=== PATIENT | female | born 1970 | race Hispanic/Latino ===

== ENCOUNTER 2018-11-23 21:40 | Emergency (ER) | payer OTHER, SELFPAY ==
[2018-11-23 23:04] LABS: #Basophils 0.1 thou/uL (0.0-0.2); #Eosinphils 0.1 thou/uL (0.0-0.7); #Lymphocytes 3.7 thou/uL (1.20-3.40); #Monocytes 0.5 thou/uL (0.11-0.59); #Neutrophils 5.7 thou/uL (1.40-6.50); %Eosinophils 1.1 % (0.0-10.0); %Lymphocytes 36.9 % (21.0-51.0); %Monocytes 4.8 % (0.0-10.0); %Neutrophils 56.1 % (42.0-75.0); Hemoglobin 13.5 g/dL (12.0-16.0); Mean Corpuscular HGB CONC 34.4 g/dL (32.0-36.0); Mean Corpuscular Hemoglobin 31.7 pg (27.0-31.0); Mean Platelet Volume 6.5 fL (7.4-10.4); Platelet Count 403 thou/uL (130-400); RBC Distribution Width 12.5 % (11.5-14.5); Red Blood Cell (RBC) Count 4.25 mill/uL (4.20-5.40); White Blood Cell (WBC) Count 10.1 thou/uL (4.8-10.8)
[2018-11-23 23:27] LABS: ALT (SGPT) 36 U/L (8-55); AST (SGOT) 23 U/L (5-34); Albumin 4.4 g/dL (3.5-5.0); Alkaline Phosphatase 96 U/L (40-150); Anion Gap 13 mmol/L (10-20); BUN (Urea Nitrogen) 8 mg/dL (7.0-18.7); Bilirubin, Total 0.2 mg/dL (0.2-1.2); Calc. Creatinine Clearance 0 mL/min (70-130); Calcium 10.2 mg/dL (7.8-10.44); Carbon Dioxide 23 mmol/L (22-29); Chloride 105 mmol/L (98-107); Estimated GFR-MDRD 84; Globulin 3.7 g/dL (2.4-3.5); Glucose 130 mg/dL (70-105); Potassium 3.7 mmol/L (3.5-5.1); Protein, Total 8.1 g/dL (6.0-8.3); Sodium 137 mmol/L (136-145)
[2018-11-24] MEDS ORDERED: Morphine 4 MG/ML VIAL ONE (00:18)
[2018-11-24] MEDS ORDERED: Ondansetron PF 4 MG/2 ML Vial ONE (00:18)
[2018-11-24] MEDS ORDERED: diphenhydrAMINE 50 MG/ML VIAL ONE (00:37)
[2018-11-24 01:01] LABS: Bilirubin Negative (Negative); Blood, Urine Small (Negative); Clarity CLEAR (Clear); Glucose, Urine (Dipstick) Negative (Negative); Leukocyte Negative (Negative); Nitrite Negative (Negative); Protein, Urine (Dipstick) Negative (Neg-Trace); Specific Gravity, Urine 1.006 (1.002-1.036); Urobilinogen 0.2 mg/dL (0.2-1.0); pH, Urine 7.5 (5.0-9.0)
[2018-11-24 01:03] LABS: Bacteria/HPF None Seen HPF (None Seen); Hyaline Casts/LPF 0-3 HYALINE CAST LPF (0-3 Hyaline); Squamous Epithelial None Seen HPF (0-3); WBC/HPF None Seen HPF (0-3)
[2018-11-24 01:04] LABS: Pregnancy Test - Urine (BHCG) Negative (Negative); Pregu Control Background? CLEAR/WHITE (CLR/WHITE); Pregu Control Bar Appear? YES (CONTROL BAR); Specific Gravity 1.006 (1.002-1.036)
--- NOTE | 2018-11-24 07:55 | CT ---
ABDOMEN AND PELVIS CT WITH CONTRAST: COMPARISON: 08/01/2008. INDICATION: Lower abdominal pain. FINDINGS: Imaged lung bases are clear. Low attenuation of the liver indicates hepatic steatosis. Correlate wi th liver function enzymes. Otherwise, the solid abdominal organs are grossly unremarkable. The lv l is incompletely assessed without the presence of enteric contrast. There is no pathologic dilatati on of the small bowel. There is mild localized ectasia of distal small bowel within the right lower quadrant without associated inflammation. There are a few colonic diverticula. There is a prominent -sized hypodensity at the left adnexa, 3.9 x 3.6 cm in axial dimensions. This indicates a prominent- sized left adnexal cyst. There is a small right adnexal hypodensity, too small to definitively shaylee cterize. Abdominal aorta is normal in caliber. There is no free air or significant ascites. No acu te osseous abnormality. IMPRESSION: 1. Hepatic steatosis. 2. Probable dominant left adnexal cyst, although incompletely characterized. Given size, and patien t's age, recommend followup with pelvic ultrasound. Additional details are described above. CODE T POS: YOGESH
== END 2018-11-24 03:05 | disposition home or self-care (01) ==
LOC: ERS 21:40
DX: N83.202 Unspecified ovarian cyst, left side (principal)
CPT/HCPCS: 36415; 74177; 80053; 81003; 81015; 81025; 83690; 85025; 87086; 96374; 96375; J1200; J2270; J2405